=== PATIENT | male | born 1995 | race African-American/Black ===

== ENCOUNTER 2022-05-14 18:16 | Emergency (ER) | payer SELFPAY ==
[~2022-05-14] VITALS: Ht 185.4 cm; Wt 117.9 kg
--- NOTE | 2022-05-14 18:44 | NUR ---
[email or web address], medical screening exam in progress
--- NOTE | 2022-05-14 18:55 | NUR ---
Received report from Mendy TREADWELL.
[2022-05-14] MEDS ORDERED: CYCLOBENZAPRINE HCL 10 MG TABLET PO ONE (19:00)
[2022-05-14] MEDS ORDERED: ONDANSETRON ODT 4 MG TAB.RAPDIS SL ONE (19:00)
[2022-05-14] MEDS ORDERED: HYDROCODONE/APAP 10-325 MG TABLET PO ONE (19:00)
[2022-05-14] MEDS ORDERED: CYCLOBENZAPRINE HCL 10 MG TABLET ONE (19:08)
[2022-05-14] MEDS ORDERED: ONDANSETRON ODT 4 MG TAB.RAPDIS ONE (19:08)
[2022-05-14] MEDS ORDERED: HYDROCODONE/APAP 10-325 MG TABLET ONE (19:09)
--- NOTE | 2022-05-14 19:13 | NUR ---
PT taken down for CT scan.
[2022-05-14] MEDS ORDERED: CYCL10TA9 PO (20:26)
[2022-05-14] MEDS ORDERED: HYDR-4209 PO (20:26)
[2022-05-14] MEDS ORDERED: ONDA4TAB5 PO (20:26)
--- NOTE | 2022-05-14 20:35 | NUR ---
Patient discharged to home in stable condition. A/O x 3. NAD noted. All belongings with patient. Written and verbal after care instructions given. Patient verbalizes understanding of instructions. Stressed follow up or return to ER for worsening s/s.
[2022-05-14 20:46] VITALS: BP 137/78
== END 2022-05-14 20:35 | disposition home or self-care (01) ==
LOC: ER 18:16
DX: R20.2 Paresthesia of skin (principal); S16.1XXA Strain of muscle, fascia and tendon at neck level, initial encounter; S29.012A Strain of muscle and tendon of back wall of thorax, initial encounter; V49.49XA Driver injured in collision with other motor vehicles in traffic accident, initial encounter; Y92.410 Unspecified street and highway as the place of occurrence of the external cause; M54.50 Low back pain, unspecified
CPT/HCPCS: 70450; 72125; 72131; A4663; Q0162